=== PATIENT | male | born 1965 ===

== ENCOUNTER 2016-11-19 08:23 | Day surgery (SDC) | payer MEDICAID ==
[2016-11-19 09:04] VITALS: BMI 31.3
[2016-11-19] MEDS ORDERED: Propofol 10 mg/ml Inj (20 ML) ONE ×2 (10:12→10:19)
[2016-11-19] MEDS ORDERED: Lactated Ringer's 500 ML IV ONE (10:26)
[2016-11-19 11:14] VITALS: TEMP 97.1
[2016-11-19 12:41] VITALS: BP 138/94; PULSE 63; RESP 18; O2SAT 99
== END 2016-11-19 11:41 | disposition home or self-care (01) ==
LOC: C.ENDO 08:23
PROVIDERS: ATTEND Internal Medicine Gastroenterology
DX: K92.1 Melena (principal); R12 Heartburn; K29.70 Gastritis, unspecified, without bleeding; K62.5 Hemorrhage of anus and rectum; K63.5 Polyp of colon
CPT/HCPCS: 43239; 45380; 88305; 88312; 88342; J2001; J2704; J3010; J7120